=== PATIENT | female | born 2000 | race African-American/Black ===

== ENCOUNTER 2021-03-05 02:59 | Emergency (ER) | payer OTHER ==
[~2021-03-05] VITALS: Ht 167.6 cm; Wt 63.5 kg
[2021-03-05] MEDS ORDERED: BIRTH CONTROL (03:06)
[2021-03-05] MEDS ORDERED: NEXPLANON68 MG SQ (04:31)
[2021-03-05 05:48] VITALS: BP 122/78
== END 2021-03-05 05:50 | disposition home or self-care (01) ==
LOC: ER 02:59
DX: M54.5 Low back pain (principal); Z79.899 Other long term (current) drug therapy; Z91.02 Food additives allergy status; V43.62XA Car passenger injured in collision with other type car in traffic accident, initial encounter; Y93.89 Activity, other specified; Y92.89 Other specified places as the place of occurrence of the external cause; Y99.8 Other external cause status